=== PATIENT | female | born 1995 | race Caucasian/White ===

== ENCOUNTER 2017-12-20 02:39 | Emergency (ER) | payer SELFPAY ==
[~2017-12-20] VITALS: Ht 162.6 cm; Wt 70.0 kg
[2017-12-20 02:42] VITALS: BP 120/71
== END 2017-12-20 05:44 | disposition left against medical advice (07) ==
LOC: ER 02:39
DX: O26.892 Other specified pregnancy related conditions, second trimester (principal); Z53.21 Procedure and treatment not carried out due to patient leaving prior to being seen by health care provider; R10.9 Unspecified abdominal pain; Z3A.18 18 weeks gestation of pregnancy